=== PATIENT | female | born 1985 | race Hispanic/Latino ===

== ENCOUNTER 2020-04-01 19:49 | Emergency (ER) | payer SELFPAY ==
--- NOTE | 2020-04-01 21:07 | EDPHYS ---
Physician Documentation [facility] Name: Hilda Brewer Age: 34 yrs Sex: Female : 1985 Arrival Date: 04/01/2020 Time: 19:52 Bed 20 Private MD: ED Physician Everette Jo HPI: 04/01 21:02 This 34 yrs old Female presents to ER via Ambulatory with complaints of rn depression. 21:02 The patient presents to the emergency department with depression. Onset: The rn symptoms/episode began/occurred "years". Severity of symptoms: At their worst the symptoms were moderate in the emergency department the symptoms are unchanged. The patient has experienced similar episodes in the past. Reports depression for "years", worse over last 2 months, has a psychiatrist and taking anti-depressant, doesn't feel like working, came in to see if she needed to "be commited". Denies suicidal or homicidal ideation, is constantly arguing with and thinks is going to get divorce. No medical complaints otherwise.. 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 - Social history:: Smoking status: Patient denies any tobacco usage or history of. Patient uses alcohol, weekly. - Family history:: not pertinent. - Hospitalizations: : No recent hospitalization is reported. ROS: 21:02 Constitutional: Negative for fever, chills, and weight loss, Eyes: Negative for injury, rn pain, redness, and discharge, Neck: Negative for injury, pain, and swelling, Cardiovascular: Negative for chest pain, palpitations, and edema, Respiratory: Negative for shortness of breath, cough, wheezing, and pleuritic chest pain, Abdomen/GI: Negative for abdominal pain, nausea, vomiting, diarrhea, and constipation, MS/Extremity: Negative for injury and deformity, Skin: Negative for injury, rash, and discoloration, Neuro: Negative for headache, weakness, numbness, tingling, and seizure, Psych: Negative for depression, anxiety Exam: 21:02 Constitutional: This is a well developed, well nourished patient who is awake, alert, rn and in no acute distress. Head/Face: Normocephalic, atraumatic. Eyes: Pupils equal round and reactive to light, extra-ocular motions intact. Periorbital areas with no swelling, redness, or edema. Cardiovascular: Regular rate and rhythm . No pulse deficits. Respiratory: Speaking full sentences, un pressured. No increased work of breathing, no retractions or nasal flaring. Skin: Warm, dry MS/ Extremity: Pulses equal, no cyanosis. Neuro: Awake and alert, GCS 15, oriented to person, place, time, and situation. Cerebellar exam normal. Normal gait. Psych: Awake, alert, with orientation to person, place and time. Behavior, mood, and affect are within normal limits. Vital Signs: 19:59 BP 120 / 85; Pulse 89; Resp 15 S; Temp 97.9(TE); Pulse Ox 99% on R/A; Weight 81.65 kg ca1 (R); Height 5 ft. 1 in. (154.94 cm); 19:59 Body Mass Index 34.01 (81.65 kg, 154.94 cm) ca1 MDM: 20:48 Patient medically screened. rn 21:02 Differential diagnosis: depression. Data reviewed: vital signs, nurses notes, and as a rn result, I will discharge patient. Counseling: I had a detailed discussion with the patient and/or guardian regarding: the historical points, exam findings, and any diagnostic results supporting the discharge/admit diagnosis, the need for outpatient follow up, to return to the emergency department if symptoms worsen or persist or if there are any questions or concerns that arise at home. Special discussion: I discussed with the patient/guardian in detail that at this point there is no indication for admission to the hospital. It is understood, however, that if the symptoms persist or worsen the patient needs to return immediately for re-evaluation. Based on the history and exam findings, there is no indication for further emergent testing or inpatient evaluation. I discussed with the patient/guardian the need to see the psychiatrist for further evaluation of the symptoms. ED course: No need for emergent transfer to psychiatric facility, normal vitals, normal exam, denies suicidal/homicidal ideation, has a psychiatrist and plans to call in AM, urged to return immediately if symptoms worsen/feels suicidal or homicidal. . Administered Medications: No medications were administered Disposition: 04/01/20 21:06 Discharged to Home. Impression: Major depressive disorder, single episode. - Condition is Stable. - Discharge Instructions: Major Depressive Disorder. - Medication Reconciliation Form, Thank You Letter, Antibiotic Education, Prescription Opioid Use form. - Follow up: Private Physician; When: Tomorrow; Reason: Recheck today's complaints, Re-evaluation by your physician. - Problem is an ongoing problem. - Symptoms are unchanged. Signatures: Everette Jo MD MD rn Davies, Jonathon, RN RN jd3 Acob, ANDRY Santamaria RN ca1 Corrections: (The following items were deleted from the chart) 21:13 21:06 04/01/2020 21:06 Discharged to Home. Impression: Major depressive disorder, jd3 single episode. Condition is Stable. Forms are Medication Reconciliation Form, Thank You Letter, Antibiotic Education, Prescription Opioid Use. Follow up: Private Physician; When: Tomorrow; Reason: Recheck today's complaints, Re-evaluation by your physician. Problem is an ongoing problem. Symptoms are unchanged. rn
--- NOTE | 2020-04-01 21:07 | ER ---
Nurse's Notes [facility] Name: Hilda Brewer Age: 34 yrs Sex: Female : 1985 Arrival Date: 04/01/2020 Time: 19:52 Bed 20 Private MD: Diagnosis: Major depressive disorder, single episode Presentation: 04/01 19:59 Chief complaint: Patient states: "I am just angry and depressed. I am committing ca1 myself. It's been going on for a while. Been seeing a psychiatrist, and am on medications but I still worse and my medication and psychiatrist are not helping". Denies suicidal and homicidal thoughts. Coronavirus screen: Patient denies a cough. Patient denies shortness of breath or difficulty breathing. Patient denies measured and/or subjective temperature greater than 100.4F prior to today's visit. Patient denies travel on a cruise ship or to a country the [facility] currently lists as an affected area. Patient denies contact with known and/or suspected case of COVID-19. Proceed with normal triage. Ebola Screen: Patient negative for fever greater than or equal to 101.5 degrees Fahrenheit, and additional compatible Ebola Virus Disease symptoms Patient denies exposure to infectious person. Patient denies travel to an Ebola-affected area in the 21 days before illness onset. No symptoms or risks identified at this time. Initial Sepsis Screen: Does the patient meet any 2 criteria? No. Patient's initial sepsis screen is negative. Does the patient have a suspected source of infection? No. Patient's initial sepsis screen is negative. Risk Assessment: Do you want to hurt yourself or someone else? Patient reports no desire to harm self or others. Onset of symptoms was April 01, 2020. 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 - Social history:: Smoking status: Patient denies any tobacco usage or history of. Patient uses alcohol, weekly. - Family history:: not pertinent. - Hospitalizations: : No recent hospitalization is reported. Screenin:12 Abuse screen: Denies threats or abuse. Nutritional screening: Nutritional screening: No jd3 deficits noted. Tuberculosis screening: No symptoms or risk factors identified. Fall Risk Ambulatory Aid- None/Bed Rest/Nurse Assist (0 pts). Gait- Normal/Bed Rest/Wheelchair (0 pts) Mental Status- Oriented to own ability (0 pts). Total Vera Fall Scale indicates No Risk (0-24 pts). Assessment: 21:11 General: Appears in no apparent distress. uncomfortable, Behavior is calm, cooperative, jd3 appropriate for age, anxious. Pain: Denies pain. Neuro: Level of Consciousness is awake, alert, obeys commands, Oriented to person, place, time, situation. Cardiovascular: Denies chest pain, Capillary refill < 3 seconds Patient's skin is warm and dry. Respiratory: Airway is patent Respiratory effort is even, unlabored, Respiratory pattern is regular, symmetrical, Denies cough, shortness of breath. GI: No signs and/or symptoms were reported involving the gastrointestinal system. : No signs and/or symptoms were reported regarding the genitourinary system. EENT: No signs and/or symptoms were reported regarding the EENT system. Derm: Skin is intact, Skin is dry, Skin is normal, Skin temperature is warm. Musculoskeletal: Circulation, motion, and sensation intact. Range of motion: intact in all extremities. Vital Signs: 19:59 BP 120 / 85; Pulse 89; Resp 15 S; Temp 97.9(TE); Pulse Ox 99% on R/A; Weight 81.65 kg ca1 (R); Height 5 ft. 1 in. (154.94 cm); 19:59 Body Mass Index 34.01 (81.65 kg, 154.94 cm) ca1 ED Course: 19:52 Patient arrived in ED. bp1 20:03 Triage completed. ca1 20:04 Arm band placed on right wrist. ca1 20:48 Everette Jo MD is Attending Physician. rn 21:11 Amandeep Rangel RN is Primary Nurse. jd3 21:12 Patient has correct armband on for positive identification. Bed in low position. Call jd3 light in reach. Side rails up X 1. Pulse ox on. NIBP on. 21:13 No provider procedures requiring assistance completed. Patient did not have IV access jelijah during this emergency room visit. Administered Medications: No medications were administered Outcome: 21:06 Discharge ordered by . rn 21:13 Discharged to home ambulatory. jd3 21:13 Condition: stable 21:13 Discharge instructions given to patient, Instructed on discharge instructions, follow up and referral plans. Demonstrated understanding of instructions, follow-up care. 21:13 Patient left the ED. jd3 Signatures: Everette Jo MD MD rn Davies, Jonathon, RN RN Hina Knight RN RN ca1 Ale Gamez bp1
[2020-04-01 21:20] VITALS: BP 120/85; TEMP 97.9; O2SAT 99
== END 2020-04-01 21:13 | disposition home or self-care (01) ==
LOC: ER 19:49
DX: F32.9 Major depressive disorder, single episode, unspecified (principal)
CPT/HCPCS: 99283

== ENCOUNTER 2021-10-12 10:36 | Day surgery (SDC) | payer OTHER ==
[2021-10-06 14:40] LABS: Urine Appearance CLEAR (Clear); Urine Bilirubin NEGATIVE (Negative); Urine Blood 1+ (Negative); Urine Color YELLOW (Yellow); Urine Glucose NEGATIVE (Negative); Urine Protein NEGATIVE (Negative); Urine Urobilinogen 0.2 mg/dL (0.2-1.0)
[2021-10-06 14:41] LABS: Urine Microscopic Reflex ORDER UMIC
[2021-10-06 14:54] LABS: Potassium 3.6 mmol/L (3.5-5.1)
[2021-10-06 14:59] LABS: Absolute Lymphocytes (CBC) 1.4 K/uL (0.7-4.9); Hematocrit 44.3 % (36.0-45.0); Lymphocytes % 20.7 % (15.3-44.8); MPV 9.1 fL (7.6-11.3); RBC Red Blood Cell Count 5.07 M/uL (3.86-4.86)
[2021-10-06 15:02] LABS: Protime INR 1.02
[2021-10-06 15:22] LABS: Urine Mucus 2+ /HPF (NONE SEEN); Urine RBC <5 /HPF (NONE SEEN)
[2021-10-06 15:24] LABS: Urine Bacteria 20-50 /HPF (<20)
[2021-10-12] MEDS ORDERED: Ringers Lactate 1,000 ML IV ONE ×2 (10:52→18:39)
[2021-10-12] MEDS ORDERED: ACETAMINOPHEN 500 MG TAB ONE (11:38)
[2021-10-12] MEDS ORDERED: CELECOXIB 100 MG CAPSULE ONE (11:39)
[2021-10-12] MEDS ORDERED: CELECOXIB 100 MG CAPSULE PO ONE (11:40)
[2021-10-12] MEDS ORDERED: ACETAMINOPHEN 500 MG TAB PO ONE (11:40)
[2021-10-12] MEDS: CEFAZOLIN/SWI 2gm 2 GM/20 ML SYR ONE ×2 (13:35→16:15)
[2021-10-12] MEDS ORDERED: CEFAZOLIN SODIUM 1 GM/VIAL ONE (14:59)
[2021-10-12] MEDS ORDERED: NA CHLORIDE 0.9% 100 ML IV ONE (15:00)
[2021-10-12] MEDS: VASOPRESSIN 20 UNIT/ML VIAL ONE ×2 (15:58→16:42)
[2021-10-12] MEDS: LIDOCAINE 1% W/EPI 1:100,000 MDV 20 ML VIAL ONE ×2 (15:59→17:04)
[2021-10-12] MEDS ORDERED: MIDAZOLAM HCL 2 MG/2 ML INJ ONE (16:02)
[2021-10-12] MEDS ORDERED: propofoL 200 MG/20 ML VIAL IV ONE (16:02)
[2021-10-12] MEDS ORDERED: LIDOCAINE 1% MPF 5 ML VIAL ONE (16:02)
[2021-10-12] MEDS ORDERED: FENTANYL CITR 100 MCG/2 ML ONE (16:02)
[2021-10-12] MEDS ORDERED: dexAMETHasone 10 MG/ML VIAL ONE (16:22)
[2021-10-12] MEDS ORDERED: ONDANSETRON 4 MG/2 ML VIAL ONE ×2 (16:23→18:10)
[2021-10-12] MEDS ORDERED: KETOROLAC 30 MG/ML INJ ONE (16:23)
[2021-10-12] MEDS ORDERED: MEPERIDINE HCL 25 MG/ML SYR IM PRN (17:10)
[2021-10-12] MEDS ORDERED: PROMETHAZINE INJ 25 MG/ML AMP IV PRN (17:10)
[2021-10-12] MEDS ORDERED: LEVONORGESTREL IUD IY SCH (17:15)
--- NOTE | 2021-10-12 17:15 | P.BOP ---
Preoperative diagnosis: FERNANDO Postoperative diagnosis: SAME Primary procedure: MUS (TVT-O) cystoscopy Associate Professor Of Chemistry: Cheryl Talamantes Estimated blood loss: min Specimen: none Findings: rectocele Anesthesia: General Complications: None Drain(s): Urinary catheter (plan to remove in 2h postop and discharge w/o catheter if she passes the voiding trial) Implants: TVT-O Fluids & blood products: [id number] Transferred to: Recovery Room Condition: Good
[2021-10-12 18:32] VITALS: BP 113/77; O2SAT 100
[2021-10-12 20:10] VITALS: TEMP 97.9
--- NOTE | 2021-10-13 05:18 | OP ---
Date of Procedure: 10/12/2021 Surgeon: Mary Baker MD Top Dyeing Machine Loader: Cheryl Sarah. Preoperative Diagnosis: Stress urinary incontinence. Postoperative Diagnosis: Stress urinary incontinence Procedure Performed: Mid urethral sling (TVT-O), cystoscopy. Anesthesia: General with LMA. Ebl: 50. Urine Output: 100. Complications: No complications. Drains: Baugh catheter and vaginal packing. Implants: TVT-O. Condition: The patient's condition stable. Indications: The patient is a 36-year-old female with stress urinary incontinence. After evaluation , she was found to have a positive cough stress test and also found to have posterior wall defect (re ctocele), mostly minimally symptomatic from here, did not need to get this addressed at this time. T he patient was counseled on this. Hypermobile urethra. We discussed about all the benefits and risk s of management including garcia holes and they have not helped. Since they have not helped, she has be en trying to lose weight. Pessary and the sling were both reviewed, felt peripheral on director of physical therapy apy as well. The patient wanted to proceed with a mid urethral sling understanding the benefits and risks including bleeding, infection, injury to the urethra, bladder, groin pain, and need for urinary retention, catheterization, sling revision. After informed consent was verified, she was brought to the OR. 2 g of Ancef was given and SCDs were placed. The patient was placed in supine fashion on the operating table and general anesthesia was given. She was placed in a dorsal lithotomy position using Javi stirrups. Lower abdomen, vulva, va víctor, and perineum were prepped and draped in a sterile fashion. Baugh was placed to drain the bladd er and procedure was started. The Baugh was clamped and retracted superiorly after draining the blad gamal. Mid urethral area was picked up on either side with the help of Krystyna clamps. Then, injected w ith dilute vasopressin 10 cc in the midline and the lateral aspect. After she was in a 1. 5 cm midline incision was made in the mid urethral area. Dissection was carried raising good flaps u nderneath the vaginal epithelium going to the ipsilateral shoulder. Hugging the inferior pubic ramus , obturator space was entered and obturator membrane was perforated, the wing guide was placed after the tract was widened. A finger dissection was also performed to widen the track to keep the sling f lat. Then, the wing guide was placed through the perforated obturator membrane and passed the needle along this, hugging the inferior pubic ramus, exiting at a point approximately 2 cm lateral to the g roin fold at the level of the external urethral meatus was slightly higher when the patient was in li thotomy, then once the plastic dilator was held with a Krystyna and the spike was removed in the wing gu montserrat, similar pass was taken on the opposite side as well without any problems. No evidence of any va ginal perforation of the sling. Then went ahead and cut the plastic dilators off the mesh and the sh eath. Mid urethral area was tensioned using an Allis clamp to hold the fold of the sling just enough to keep it loose enough. Once this was tensioned appropriately, then the plastic sheaths were pulle d and the mesh was trimmed flush with the skin. The skin pulled to avoid a pucker. Then local Lidoc alyssa was given there. Wound was irrigated along with the mesh with antibiotic solution, closed with the help of 3-0 Vicryl in a continuous running horizontal mattress fashion. There was good hemostasi s. The mesh exit points were closed with the help of Dermabond after cutting it flush with the skin. Then, Baugh removed. Cystoscopy performed. Both ureteric orifices were well visualized. No evide nce of any abnormalities in the bladder, epithelium. The entire bladder was visualized, especially p aying attention to the lateral aspect where the perforation could be seen and there was none. Bladde r was drained. Baugh was replaced. A small vaginal pack was placed. She will have a 2-hour postop voiding trial with removal of vaginal pack, and then she will be discharged home if she passes the tr ial without a catheter and with a catheter if she fails the trial. She can restart all her medications. The patient tolerated the procedure well. She has a 1-week followup. DAVID/JERMAIN Voice ID: [id number] Report ID: [id number]
[2021-10-13] MEDS ORDERED: LAMOTRIGINE 50 MG PO SCH (09:00)
== END 2021-10-12 20:13 | disposition home or self-care (01) ==
LOC: OR 10:36
PROVIDERS: ATTEND Obstetrics & Gynecology
PROC: 0TSD0ZZ Reposition Urethra, Open Approach (ICD-10-PCS; principal; 2021-10-12 12:00)
DX: N39.3 Stress incontinence (female) (male) (principal); N81.6 Rectocele; N94.12 Deep dyspareunia; Z20.822 Contact with and (suspected) exposure to COVID-19
CPT/HCPCS: 36415; 80048; 81003; 81015; 84703; 85025; 85610; 85730; 86850; 86900; 86901; 87086; 87088; J0690; J1100; J2250; J2405; J2704; J3010; J7120; U0003

== ENCOUNTER 2022-03-21 10:42 | Day surgery (SDC) | payer OTHER ==
[2022-03-17 11:10] LABS: SARS-CoV-2 Antigen Rapid Res Negative (Negative)
[2022-03-17 11:17] LABS: Albumin 3.6 g/dL (3.4-5.0); Bilirubin Total 0.4 mg/dL (0.2-1.0); Potassium 4.3 mmol/L (3.5-5.1); Protein, Total 7.4 g/dL (6.4-8.2)
[2022-03-17 11:25] LABS: Absolute Lymphocytes (CBC) 1.6 K/uL (0.7-4.9); Hematocrit 43.3 % (36.0-45.0); Lymphocytes % 26.9 % (15.3-44.8); MCV 88.3 fL (80-100); MPV 8.9 fL (7.6-11.3); RBC Red Blood Cell Count 4.91 M/uL (3.86-4.86)
--- NOTE | 2022-03-17 13:04 | EKG ---
Test Date: 2022-03-17 Test Time: 10:40:49 Medical Assembly: HERB MEASUREMENT RESULTS: Intervals: Rate: 82 SD: 148 QRSD: 92 QT: 354 QTc: 413 Argenta: P: 52 SD: 148 QRS: 59 T: 64 INTERPRETIVE STATEMENTS: Normal sinus rhythm Normal ECG No previous ECG available for comparison Electronically Signed On 03-17-22 13:03:35 CDT by Sulaiman Cheek
[~2022-03-21 10:42] MED LIST: CEFOXITIN 2 GM in NA CHLORIDE 0.9% 100 ML IV ONE
[2022-03-21] MEDS ORDERED: Ringers Lactate 1,000 ML IV ONE ×2 (11:03→14:53)
[2022-03-21 11:24] VITALS: O2SAT 100
[2022-03-21] MEDS ORDERED: ACETAMINOPHEN 500 MG TAB ONE (11:45)
[2022-03-21] MEDS ORDERED: CELECOXIB 100 MG CAPSULE ONE (11:45)
[2022-03-21] MEDS ORDERED: BUPIVACAINE 0.25% PF 30 ML VIAL ONE (12:46)
[2022-03-21] MEDS ORDERED: FENTANYL CITR 100 MCG/2 ML ONE ×2 (13:32→14:15)
[2022-03-21] MEDS ORDERED: propofoL 200 MG/20 ML VIAL IV ONE (13:32)
[2022-03-21] MEDS ORDERED: MIDAZOLAM HCL 2 MG/2 ML INJ ONE (13:33)
[2022-03-21] MEDS ORDERED: ROCURONIUM 50 MG/5 ML VIAL IV ONE (13:33)
[2022-03-21] MEDS ORDERED: LIDOCAINE 1% MPF 5 ML VIAL ONE (13:33)
[2022-03-21] MEDS ORDERED: BUPIVACA 0.5%/EPI 0.0005%/PF 30 ML VIAL ONE (13:55)
[2022-03-21] MEDS ORDERED: KETOROLAC 30 MG/ML INJ ONE (14:06)
[2022-03-21] MEDS ORDERED: dexAMETHasone 10 MG/ML VIAL ONE (14:06)
[2022-03-21] MEDS ORDERED: ONDANSETRON 4 MG/2 ML VIAL ONE ×3 (14:07→16:50)
--- NOTE | 2022-03-21 15:02 | P.OP ---
Preoperative diagnosis: Chronic Cholecystitis with Cholelithiasis Postoperative diagnosis: Chronic Cholecystitis with Cholelithiasis Primary procedure: Laparoscopic cholecystectomy with ICG Cholangiography Anesthesia: GETA + Local Estimated blood loss: <10cc Specimen: gallbladder Findings: intrahepatic, heavily scarred, contracted Complications: None Transferred to: Recovery Room Condition: Good
[2022-03-21] MEDS ORDERED: GLYCOPYRROLATE 0.2 MG/ML SYR ONE (15:03)
[2022-03-21] MEDS ORDERED: NEOSTIGMINE 1 MG/ML -10 ML VIAL ONE (15:04)
[2022-03-21] MEDS ORDERED: PROMETHAZINE INJ 25 MG/ML AMP ONE (15:46)
[2022-03-21 16:07] VITALS: BP 118/72; TEMP 97
[2022-03-21 16:12] LABS: Urine Specific Gravity/Preg >1.030 (1.005-1.030)
[2022-03-21] MEDS ORDERED: METOCLOPRAMIDE 10 MG/2mL INJ ONE (16:51)
[2022-03-21] MEDS ORDERED: HYDROCODONE/APAP 7.5/325 MG TAB ONE (17:19)
--- NOTE | 2022-03-22 03:07 | OP ---
Date of Procedure: 03/21/2022 Surgeon: Bridgett Vidales MD, Preoperative Diagnosis: Chronic cholecystitis with cholelithiasis. Postoperative Diagnosis: Chronic cholecystitis with cholelithiasis. Procedures Performed: Laparoscopic cholecystectomy with ICG indocyanine green cholangiography. Anesthesia: General endotracheal plus local 0.5% Marcaine with epinephrine. Estimated Blood Loss: Less than 10 cc. Specimen: Gallbladder. Findings: 1.Intrahepatic gallbladder. 2.Heavily scarred gallbladder with omentum and multiple perihepatic scars/adhesions. 3.Contracted gallbladder at the fundus. 4.Aberrant vascular branches from hepatic fossa to gallbladder. Procedure In Detail: After informed consent was obtained, the patient was brought to the operating r oom and prepped and draped in the usual sterile fashion after adequate anesthesia was achieved. The supraumbilical area was anesthetized with 0.5% Marcaine and sharply incised. A 5 mm 0-degree optical trocar was introduced in the abdomen without complication. Insufflation was obtained to 15 mmHg at this time. No injury to vital structures upon entry into the abdomen. Additional trocar was placed in the epigastrium. This similarly was anesthetized and sharply incised. A 5 mm trocar was placed u nder direct visualization without complication. The umbilical trocar was then upsized to a 12 mm und er direct visualization without evidence of complication. Additional trocar was placed in the right upper quadrant. This similarly was anesthetized and sharply incised. A 5 mm trocar was placed under direct visualization without complication. The patient was positioned head up right-side up positio n. Ratcheted grasper was used to grasp the patient's gallbladder, was found to be heavily scarred in , contracted at the fundus of the gallbladder. Combination of electrocautery and blunt dissection wa s used to remove the omentum from the anterior surface of the gallbladder. In addition, significant scarring and contracture of the gallbladder was appreciated. I grasped the gallbladder, pushed towar ds the patient's right shoulder and continued to dissect down to the Peyton's pouch of the gallblad gamal using predominantly electrocautery as well as some blunt dissection with the Janel retractors. I used indocyanine green cholangiography at this point to confirm the identity of 2 structures, whic h were identified as the cystic duct and cystic artery and the common duct confluence was appreciated at this point after I skeletonized the cystic duct and cystic artery. These were doubly clipped wit h titanium clips on the proximal side and singly on the distal side after the critical view of safety was obtained. These structures were then ligated using Endo Alberto at this point without evidence o f complication. I then proceeded to remove the gallbladder from the hepatic fossa. It was found to be predominantly intrahepatic and small hair vascular branches were appreciated approximately nursing home up the gallbladder fossa with arterial spurting at the gallbladder bed. This was controlled with cl ips at this point when electrocautery was unsuccessful. Hemostasis was achieved with clips at this p oint with a single clip. At this point, the area was inspected and hemostasis was achieved at this p oint, however, we proceeded to remove the gallbladder fossa without further evidence of complication. The gallbladder was then placed in hepatic fossa and sent off for pathologic examination after pardeep quevedo removed the umbilical trocar. Re-insufflation was obtained at this point. The area was copiously irrigated multiple times with approximately half a liter of saline. The hepatic fossa was inspected and all clips were found to be in good anatomic position without any evidence of spillage. The fluid was suctioned out and no additional hemostat was required. I fulgurated portions of the hepatic bed at this point away from the previous clips to ensure hemostasis. At this point, the area was irriga bridgett once again and inspected under desufflation pressure. There was no evidence of bleeding at this point. The area was copiously irrigated one last time and suctioned out. At this point, clips were found to be in good anatomic position. I then placed the patient back in a neutral position. Remain ing fluid was suctioned out. The umbilical trocar was then removed. The umbilical trocar site was c losed using a Buck-Kojo suture passer with 0 Vicryl in fashion. Good approximation tissues. T he remaining trocars were removed under direct visualization without evidence of complication and the abdomen was completely desufflated. All trocars were placed on the back table. All skin incisions were copiously irrigated and closed with a 4-0 Monocryl fashion and Dermabond placed over top. The p atient tolerated the procedure well without evidence of any complication and transferred back in good condition. All counts were correct at the end of the case. TK/MODL Voice ID: [id number] Report ID: [id number]
== END 2022-03-21 17:23 | disposition home or self-care (01) ==
LOC: OR 10:42
PROVIDERS: ATTEND Surgery
PROC: BF13YZZ Fluoroscopy of Gallbladder and Bile Ducts using Other Contrast (ICD-10-PCS; 2022-03-21)
PROC: 0FT44ZZ Resection of Gallbladder, Percutaneous Endoscopic Approach (ICD-10-PCS; principal; 2022-03-21 13:45)
DX: K80.10 Calculus of gallbladder with chronic cholecystitis without obstruction (principal); R10.11 Right upper quadrant pain; F32.A Depression, unspecified; R51.9 Headache, unspecified; I67.1 Cerebral aneurysm, nonruptured; Z20.822 Contact with and (suspected) exposure to COVID-19
CPT/HCPCS: 93005; 85025; 36415; 81025; 88304; 80053; 87811; 47563; J2704; J2710; J2765; J2550; J2250; J3010 ×2; J1100; J7120 ×2; J0694; J2405 ×3

== ENCOUNTER 2025-06-16 16:57 | Emergency (ER) | payer OTHER ==
--- OUTSIDE RECORDS SUMMARY | 2025-06-16 17:01 | XMS REPORT | Continuity of Care Document ---
Author Name Unknown Address [address] [place] [address] [facility] Address [address] [place] [address] Care Team Providers Care Post Anesthesia Nurse Name Role Phone NO PHYSICIAN, . Primary Care Physician Unavailab LAURA Fry Attending Clinician Unavailab le Doctor Unassigned, Sargeant Attending Clinician U Dante Weldno Attending Clinician + DANTE GRIDER Attending Clinician Unavail able Payers Payer Name Policy Type Policy Number Effective Date Expirati on Date Source Problems Condition Name Condition Details Condition Category Status Onset Date Resolution Date Last Treatment Date Treating Clinician Comments Source IUD (intrauter ine device) in place IUD (intrauter ine device) in place Disease Active 05-01 00:00: 00 [facility] IUD (intrauter ine device) in place IUD (intrauter ine device) in place Disease Active 05-01 00:00: 00 [facility] Contracept fran management Contracept fran management Disease Active 03-05 00:00: 00 [facility] Contracept fran management Contracept fran management Disease Active 03-05 00:00: 00 [facility] Obesity (BMI 30-39.9) Obesity (BMI 30-39.9) Disease Active 03-05 00:00: 00 [facility] Encounter for insertion of intrauteri ne contracept fran device Encounter for insertion of intrauteri ne contracept fran device Disease Active 05-13 00:00: 00 Overview: Exp. 8 [facility] Brain aneurysm-- 03/2012 Brain aneurysm-- 03/2012 Disease Active 02-19 00:00: 00 [facility] Depression --denies suicidal thoughts or plans Depression --denies suicidal thoughts or plans Disease Active 02-19 00:00: 00 [facility] Tobacco use disorder Tobacco use disorder Disease Active 02-19 00:00: 00 [facility] Allergies, Adverse Reactions, Alerts Allergy Name Allergy Type Status Severity Reaction(s) Onset Date Inactive Date Treating Clinician Comments Source NO KNOWN ALLERGIE S Drug Class Active [facility] Social History Social Habit Start Date Stop Date Quantity Comments Source [facility] Alcohol intake 2019-05-01 00:00:00 2019-05-01 00:00:00 [facility] History of tobacco use 2013-02-18 00:00:00 Cigarette Smoker [facility] Alcohol Comment 2012-11-26 00:00:00 2012-11-26 00:00:00 socially [facility] Smoking Status Start Date Stop Date Source Former smoker 2019-05-01 00:00:00 2019-05-01 00:00:00 [facility] Medications Ordered Medication Name Filled Medication Name Start Date Stop Date Current Medication? Ordering Clinician Indication Dosage Frequency Signature (SIG) Comments Components Source Nitrofurant oin (Macrobid *) 100 Mg CAP Nitrofurant oin (Macrobid *) 100 Mg CAP 10-04 21:05: 00 Yes 100 [facility] warfarin (COUMADIN) 4 mg tablet 03-05 15:05: 11 Yes 4mg Take 4 mg by mouth. [facility] citalopram (CELEXA) 20 mg tablet 03-05 15:05: 11 Yes 20mg Take 20 mg by mouth daily. [facility] levETIRAcet am (KEPPRA) 1,000 mg tablet 03-05 15:05: 11 Yes 1000mg Take 1,000 mg by mouth daily. [facility] Vital Signs Vital Name Observation Time Observation Value Comments Kate ureña Systolic blood pressure 2019-05-01 14:59:00 125 mm[Hg] [facility] Diastolic blood pressure 2019-05-01 14:59:00 85 mm[Hg] [facility] Heart rate 2019-05-01 14:59:00 75 /min [facility] Body temperature 2019-05-01 14:59:00 36.22 [facility] Respiratory rate 2019-05-01 14:59:00 16 /min [facility] Body height 2019-05-01 14:59:00 154.9 cm [facility] Body weight 2019-05-01 14:59:00 76.374 kg [facility] BMI 2019-05-01 14:59:00 31.81 kg/m2 [facility] Procedures Procedure Date / Time Performed Performing Clinicia n Source EXTERNAL PROVIDER RECORDS 2020-04-02 05:01:00 Doctor Unassigned, [facility] Encounters Start Date/Time End Date/Time Encounter Type Admission Type Attending Clinicians Care Facility Care Department Encounter ID Source 2024-10-04 19:21:00 2024-10-04 21:33:00 Departed Emergency Room [facility] [id number] [facility] 2024-10-04 19:21:00 2024-10-04 21:33:00 Emergency ER [facility] [id number] [facility] 2020-04-02 00:00:00 2020-04-02 00:00:00 Orders Only Doctor Unassigned, Sargeant [facility] [id number] [facility] 2019-05-01 09:37:11 2019-05-01 10:41:36 Office Visit Leo Grideralejandro Tapia [facility] [id number] [facility] 2019-05-01 09:30:00 2019-05-01 10:41:36 [facility] [id number] [facility] Results Test Description Test Time Test Comments Results Result Co mments Source [facility] CtrUrine leukocyte esterase [id number] 20:58:00* Test Item Value Reference Range Interpretation Comme nts Urine Leukocyte Esterase (te st code = 160543-7) 2+ [facility] CtrRBC count ur [id number] 20:54:00* Test Item Value Reference Range Interpretation Comme nts Urine RBC (test code = 798-9) 0-2 [facility] CtrUrine examination for white blood cells (WBC) 2024-10-04 20:54:00* Test Item Value Reference Range Interpretation Comme nts Urine WBC (test code = 631084344) 51-100 [facility] CtrAutomated epithelial cells count in urine sediment (number/area)2024-10-04 20:54:00* Test Item Value Reference Range Interpretation Comme nts Urine Epithelial Cells (test code = 81227-8) 0-2 [facility] CtrBacteria detection in urine sediment by light mswciqdotf0711-66-77 20:54:00* Test Item Value Reference Range Interpretation Comme nts Urine Bacteria (test code = 74497-1) Few [facility] CtrUrine casts detection by automated method 2024-10-04 20:54:00* Test Item Value Reference Range Interpretation Comme nts Urine Casts (test code = 04203-0) 0-2 [facility] CtrColor of Urine by [id number] 20:49:00* Test Item Value Reference Range Interpretation Comme nts Urine Color (test code = 65568-8) Yellow [facility] CtrAppearance of [id number] 20:49:00* Test Item Value Reference Range Interpretation Comme nts Urine Appearance (test code = 5767-9) Clear [facility] CtrUrine glucose bcdofgkvg6694-90-34 20:49:00* Test Item Value Reference Range Interpretation Comme nts Urine Glucose (UA) (test cod e = 2349-9) Negative [facility] CtrBilirubin [id number] 20:49:00* Test Item Value Reference Range Interpretation Comme [facility] Urine Bilirubin (test code = 002425989) Negative [facility] CtrKetones dc0557-42-32 20:49:00* Test Item Value Reference Range Interpretation Comme [facility] Urine Ketones (test code = 26243520) 1+(SMALL) [facility] CtrSpecific gravity of Urine by Automated test strip 2024-10-04 20:49:00* Test Item Value Reference Range Interpretation Comme nts Urine Specific [place] (test code = 63113-1) 1.011 [facility] wnqimbmlt9331-58-59 20:49:00* Test Item Value Reference Range Interpretation Comme [facility] Urine Blood (test code = 457190-8) 1+ (SMALL) [facility] CtrpH [id number] 20:49:00* Test Item Value Reference Range Interpretation Comme [facility] Urine pH (test code = 2756-5) 6.000 [facility] CtrProtein gx7582-05-01 20:49:00* Test Item Value Reference Range Interpretation Comme nts Urine Protein (test code = 38381933) Negative [facility] CtrUrobilinogen, urine, tl9830-79-08 20:49:00* Test Item Value Reference Range Interpretation Comme nts Urine Urobilinogen (test cod e = 837003965) 0.2 [facility] nitrate odgqkqeyi1447-73-06 20:49:00* Test Item Value Reference Range Interpretation Comme [facility] Urine Nitrate (test code = 25415-7) Negative [facility] CtrSerum or plasma cardiac troponin I panel by high sensitivity onowec8804-31-04 20:24:00* Test Item Value Reference Range Interpretation Comme nts Troponin T High Sensitivity (test code = 37306-9) 6.6 [facility] potassium kaeflwxqsjr6567-18-64 20:22:00* Test Item Value Reference Range Interpretation Comme nts Potassium Level (test code = 2821-7) 3.5 [facility] GdhEO56731-59-95 20:22:00* Test Item Value Reference Range Interpretation Comme nts Carbon Dioxide Level (test c ode = 01172951) 19 [facility] CtrAnion gap iicjzpsuipb9924-28-17 20:22:00* Test Item Value Reference Range Interpretation Comme nts Anion Gap (test code = 39490278) 19.5 [facility] CtrCalcium mudoe4135-43-28 20:22:00* Test Item Value Reference Range Interpretation Comme nts Calcium Level (test code = 83733621) 8.7 [facility] CtrGlobulin vlk4684-76-33 20:22:00* Test Item Value Reference Range Interpretation Comme nts Globulin (test code = 792237138) 2.8 [facility] CtrALT (SGPT) ser/xeru5060-82-46 20:22:00* Test Item Value Reference Range Interpretation Comme nts Alanine Aminotransferase (AL T/SGPT) (test code = 1742-6) 12 [facility] CtrALP ser/dzzk1343-91-82 20:22:00* Test Item Value Reference Range Interpretation Comme nts Total Alkaline Phosphatase ( test code = 6768-6) 76 [facility] CtrBilirubin wxbux2362-73-24 20:22:00* Test Item Value Reference Range Interpretation Comme nts Total Bilirubin (test code = JCH0735) 0.3 [facility] CtrSerum or plasma urea nitrogen measurement (mass/volume)2024-10-04 20:22:00* Test Item Value Reference Range Interpretation Comme nts Blood Urea Nitrogen (test co de = 3094-0) 14 [facility] MkuSFO9327-08-86 20:22:00* Test Item Value Reference Range Interpretation Comme nts Aspartate Amino Transf (AST/ SGOT) (test code = GDJ3184) 19 [facility] CtrCreatinine dkefp4221-83-88 20:22:00* Test Item Value Reference Range Interpretation Comme [facility] Creatinine (test code = 142615745) 0.78 [facility] CtrEstimated glomerular filtration rate (GFR) hdflbardcuxvf0465-33-09 20:22:00* Test Item Value Reference Range Interpretation Comme [facility] Glomerular Filtration Rate C alc (test code = 659844036) > 60.00 [facility] CtrBUN/creatinine wyejr5885-01-67 20:22:00* Test Item Value Reference Range Interpretation Comme [facility] BUN/Creatinine Ratio (test c ode = 90769325) 17.9 [facility] CtrRBC cwafn5158-32-89 20:17:00* Test Item Value Reference Range Interpretation Comme [facility] Red Blood Count (test code = 78222963) 4.24 [facility] XfzErhdeuskqj2648-76-56 20:17:00* Test Item Value Reference Range Interpretation Comme [facility] Hematocrit (test code = 01627137) 36.7 [facility] CtrMCV (mean corpuscular volume) determination 2024-10-04 20:17:00* Test Item Value Reference Range Interpretation Comme [facility] Mean Corpuscular Volume (jasmyn t code = 46901-5) 86.6 [facility] CtrMean corpuscular hemoglobin (MCH) determination 2024-10-04 20:17:00* Test Item Value Reference Range Interpretation Comme [facility] Mean Corpuscular Hemoglobin (test code = 34246284) 29.0 [facility] CtrMean corpuscular hemoglobin concentration (MCHC) ftmrbltglstbo9872-27-54 20:17:00* Test Item Value Reference Range Interpretation Comme [facility] Mean Corpuscular Hemoglobin Concent (test code = 88536981) 33.5 [facility] CtrRBC distribution width coefficient of variation 2024-10-04 20:17:00* Test Item Value Reference Range Interpretation Comme [facility] Red Cell Distribution Width (test code = 81921850) 13.0 [facility] CtrPlatelet fucjv2002-13-50 20:17:00* Test Item Value Reference Range Interpretation Comme nts Platelet Count (test code = 52808560) 217 [facility] CtrMean platelet wwprpi2188-38-02 20:17:00* Test Item Value Reference Range Interpretation Comme nts Mean Platelet Volume (test c ode = 53786439) 10.2 [facility] CtrNeutrophils seg % rbo7627-03-64 20:17:00* Test Item Value Reference Range Interpretation Comme nts Neutrophils (%) (Auto) (test code = 83475-8) 87.0 [facility] CtrAbsolute immature granulocyte mgutx5484-45-52 20:17:00* Test Item Value Reference Range Interpretation Comme nts Absolute Immature Granulocyt e (auto (test code = 69161-6) 0.05 [facility] CtrBlood band neutrophils count (number/volume) 2024-10-04 20:17:00* Test Item Value Reference Range Interpretation Comme nts Neutrophils # (Auto) (test c ode = 94415-2) 7.46 [facility] CtrAbsolute lymphocyte bblap4300-30-30 20:17:00* Test Item Value Reference Range Interpretation Comme nts Lymphocytes # (Auto) (test c ode = 75444-3) 0.69 [facility] CtrAbsolute basophil pfekd7357-41-32 20:17:00* Test Item Value Reference Range Interpretation Comme nts Basophils # (Auto) (test cod e = 23689994) 0.02 [facility] CtrAbsolute NRBC emkra6468-04-22 20:17:00* Test Item Value Reference Range Interpretation Comme nts Nucleated Red Blood Cells # (test code = 770590141) 0 [facility] CtrAbsolute eosinophil angwg6981-49-04 20:17:00* Test Item Value Reference Range Interpretation Comme nts Eosinophils # (Auto) (test c ode = STF4052) 0.19 [facility] Notes <thead> Date/Time Note Provider Source [facility] Cno1484-76-24 21:40:13 [facility] Fyd4218-12-76 21:40:13 THANK YOU FOR CHOOSING US FOR YOUR MEDICAL CARE AND IT WAS A PLEASURE TO TAKE CARE OF YOU: VALENTINO CERVANTES, MSN, PRODUCT DEVELOPMENT TECHNICIAN, PHYSICIAN ASSISTANT CERTIFIED-BC DIAGNOSIS: UTI PRESCRIPTION: MACROBID PER PRESCRIPTION DETAILS SENT [facility] STEVIE GUILLEN: STAR GIVE IN ER FOLLOW UP: PRIMARY CARE IN 2 DAYS RETURN TO ER FOR WORSENING OF SYMPTOMS INSTRUCTIONS: PLENTY OF FLUIDS TYLENOL AND IBUPROFEN NEEDED GOOD INFECTION CONTROL - SUCH HANDWASHING Future Tests Future scheduled test information is unavailable Pending Tests Pending diagnostic test information is unavailable Future Visits Future appointment information is unavailable Referrals to Other Providers <thead> Reason for Referral Referral Start Date Provider Provider Contact Information Provider Address NO PHYSICIAN Future Procedures <thead> Procedure Name Ordered Date Scheduled Date Insert Peripheral IV Access October 04, 2024 7 :39pm October 04, 2024 EKG,INITIAL October 04, 2024 7:39pm Januar y 2024 Electrocardiogram, Complete October 04, 2024 7 :39pm October 04, 2024 7:38pm Future Medications Future medication information is unavailable Patient Instructions <tbody> Urinary Tract Infection, Wicho lt, [id number]-Mjho [facility]
[2025-06-16 18:41] LABS: Absolute Lymphocytes (CBC) 1.5 K/uL (0.7-4.9); Hematocrit 38.7 % (36.0-45.0); Hemoglobin 12.7 g/dL (12.0-15.0); MCH 29.0 pg (27.0-35.0); MCHC 32.8 g/dL (32.0-36.0); MCV 88.4 fL (80-100); MPV 8.4 fL (7.6-11.3); Nucleated RBC Absolute Count 0.0 (0-0); Nucleated Red Blood Cells % 0.0 % (0-0); RBC Red Blood Cell Count 4.38 M/uL (3.86-4.86); White Blood Count 6.10 thou/uL (4.3-10.9)
[2025-06-16] MEDS ORDERED: KETOROLAC 30 MG/ML INJ ONE (18:45)
[2025-06-16] MEDS ORDERED: METOCLOPRAMIDE 10 MG/2mL INJ ONE (18:45)
[2025-06-16] MEDS ORDERED: DIPHENHYDRAMINE 50 MG/ML VIAL ONE (18:46)
[2025-06-16] MEDS ORDERED: NA CHLORIDE 0.9% 1,000 ML ONE (18:46)
[2025-06-16 18:54] LABS: Anion Gap 8.0 mEq/L (5.0-15.0); BUN Blood Urea Nitrogen 14.0 mg/dL (7-18); Glucose Level 82.0 mg/dL (74-106); Magnesium 1.9 mg/dL (1.6-2.4); Potassium 4.0 mEq/L (3.5-5.1)
--- NOTE | 2025-06-16 20:31 | RAD REPORT ---
EXAM: CT brain without contrast HISTORY: HEADACHE COMPARISON: 06/11/2015 TECHNIQUE: Multiple contiguous axial images were obtained and a CT of the brain without contrast. Sag ittal and coronal reformats were performed. One or more of the following dose reduction techniques were used: Automated exposure control, adjust ment of the mA and/or kV according to patient size, and/or iterative reconstruction. FINDINGS: No evidence of hydrocephalus, intracranial hemorrhage, or extra-axial fluid collection. The brain is normal in morphology. No evidence of midline shift or areas of brain edema. The calvarium is intact. The visualized paranasal sinuses and mastoid air cells are essentially clear . IMPRESSION: No evidence of acute intracranial abnormality.
--- NOTE | 2025-06-16 20:42 | RAD REPORT ---
EXAMINATION: CTA HEAD CLINICAL INDICATION: h/o aneursym;Headache TECHNIQUE: Axial CT images were obtained through the head after intravenous contrast utilizing angiog raphic protocol with 3D post-processing (maximum intensity projection images, volume rendered images and/or shaded surface rendered images). One or more of the following dose reduction technique s were used: Automated exposure control, adjustment of the mA and/or kV according to patient size, and/or iterative reconstruction. Unless otherwise specified, incidental findings do not require dedic ated imaging follow-up. COMPARISON: No prior exam. FINDINGS: ICA: The petrous, cavernous, and supraclinoid segments of the bilateral internal carotid arteries are normal. The ophthalmic artery origins are visualized and normal. The posterior communicating arteries are patent. MIRIAM: Anterior cerebral arteries are normal bilaterally. The anterior communicating artery is patent. MCA: Middle cerebral arteries are normal bilaterally. CHIEF SECURITY AND SAFETY OFFICER: Posterior cerebral arteries are normal bilaterally. Vertebrobasilar: The vertebral arteries are patent. The basilar artery is normal in appearance. 3D images confirm these findings. IMPRESSION: No significant flow abnormality is identified.
--- NOTE | 2025-06-16 20:47 | RAD REPORT ---
EXAMINATION: CTA NECK CLINICAL INDICATION: headache, h/o aneursym TECHNIQUE: Axial CT images were obtained from the aortic arch to the skull base after intravenous con trast utilizing angiographic protocol with 3D post-processing (maximum intensity projection images, volume rendered images and/or shaded surface rendered images). One or more of the following dose redu ction techniques were used: Automated exposure control, adjustment of the mA and/or kV according to patient size, and/or iterative reconstruction. Unless otherwise specified, incidental findings do not require dedicated imaging follow-up. COMPARISON: No prior exam. FINDINGS: AORTA: The imaged aortic arch is normal. CCA: The common carotid arteries are patent and normal in caliber. ICA/ECA: Bilateral internal and external carotid arteries are patent. There is no significant interna l carotid artery stenosis. VERTEBRAL: The cervical vertebral arteries are patent. Mildly dominant left vertebral. SOFT TISSUE: No significant neck soft tissue abnormalities. The visualized lung apices are clear. 3D images confirm these findings. IMPRESSION: No significant flow abnormality of the neck vessels is identified. NASCET criteria used. Mild 0-49% stenosis Moderate 50-69% stenosis Severe 70-99% stenosis
--- NOTE | 2025-06-16 20:54 | EDPHYS ---
Physician Documentation [facility] Name: Hilda Brewer Age: 40 yrs Sex: Female : 1985 Arrival Date: 06/16/2025 Time: 16:57 Bed 25 Private MD: ED Physician Everette Jo HPI: 06/16 17:50 This 40 yrs old Female presents to ER via Ambulatory with complaints of sb4 Headache. 18:03 Patient reports an intermittent headache for about a month now. States that she donated sb4 blood today and the headache became much worse afterwards. States she took Excedrin without significant relief in symptoms. Does report a history of intermittent headaches, but nothing severe. States that she did have an aneurysm over 10 years ago and had coils put in but states that it has since resolved and has not had any issues since. Denies any head trauma recently, is not on any blood thinners. 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 - Infectious Disease History:: Denies. - Social history:: Smoking status: Patient denies any tobacco usage or history of. ROS: 18:03 Constitutional: Negative for fever, chills, and weight loss, sb4 18:03 Neuro: Positive for headache, 18:03 All other systems are negative, Exam: 18:05 Head/Face: Normocephalic, atraumatic. Eyes: Extra-ocular motions intact. Periorbital sb4 areas with no swelling, redness, or edema. ENT: Mucous membranes moist. Cardiovascular: Regular rate and rhythm with a normal S1 and S2. Respiratory: No increased work of breathing, no retractions or nasal flaring. Abdomen/GI: Soft, non-tender, no distension. Skin: Warm, dry with normal turgor. Normal color with no rashes, no lesions, and no evidence of cellulitis. MS/ Extremity: Pulses equal, no cyanosis. Neurovascular intact. Full, normal range of motion. 18:05 Constitutional: The patient appears alert, awake, in obvious pain, uncomfortable, Vital Signs: 17:07 BP 116 / 75; Pulse 100; Resp 18; Temp 98.2; Pulse Ox 98% ; Weight 81.65 kg; Height 5 me1 ft. 1 in. ; Pain 8/10; 19:00 BP 107 / 78; Pulse 84; Resp 16; Pulse Ox 100% on R/A; jb4 20:30 BP 91 / 63; Pulse 79; Resp 16; Pulse Ox 98% on R/A; jb4 17:07 Body Mass Index 34.01 (81.65 kg, 154.94 cm) me1 17:07 Pain Scale: Adult me1 Aaron Coma Score: 21:15 Eye Response: spontaneous(4). Motor Response: obeys commands(6). Verbal Response: sb4 oriented(5). Total: 15. MDM: 17:06 Medical Screening Exam initiated sb4 18:05 Differential diagnosis: cluster headache, cerebral vascular accident, hypertensive sb4 headache, intracerebral hemorrhage, migraine, neoplasm, temporal arteritis. 21:15 Data reviewed: vital signs, nurses notes, lab test result(s), radiologic studies, and sb4 as a result, I will discharge patient. Counseling: I had a detailed discussion with the patient and/or guardian regarding the historical points, exam findings, and any diagnostic results supporting the discharge/admit diagnosis, lab results, radiology results, the need for outpatient follow up, a neurologist, to return to the emergency department if symptoms worsen or persist or if there are any questions or concerns that arise at home. 06/16 17:13 Order name: CBC with Diff; Complete Time: 18:47 sb4 06/16 17:13 Order name: BMP; Complete Time: 18:54 sb4 06/16 17:13 Order name: Magnesium; Complete Time: 18:54 sb4 06/16 17:13 Order name: Test, Serum; Complete Time: 19:35 sb4 06/16 17:13 Order name: Head Brain Wo Cont CT; Complete Time: 20:33 sb4 06/16 17:13 Order name: Head Angio CT; Complete Time: 20:42 sb4 06/16 17:13 Order name: CT Neck Angio; Complete Time: 20:48 sb4 06/16 17:13 Order name: IV Start; Complete Time: 18:55 sb4 Administered Medications: 18:55 Drug: NS 0.9% IV 1000 ml IV at 1 bolus Per protocol; to be given as a bolus over 60 jb4 minutes Route: IV; Rate: 1 bolus; Site: left antecubital; 21:19 Follow up: Response: No adverse reaction; IV Status: Pt discharged; IV Intake: 900ml jb4 18:55 Drug: metoCLOPramide IVP 10 mg IVP once; over 1 to 2 minutes Route: IVP; Site: right jb4 antecubital; 21:19 Follow up: Response: No adverse reaction; Marked relief of symptoms; Pain is decreased jb4 18:55 Drug: diphenhydrAMINE IVP 25 mg IVP once Route: IVP; Site: left antecubital; jb4 21:19 Follow up: Response: No adverse reaction; Marked relief of symptoms; Pain is decreased jb4 18:55 Drug: Ketorolac IVP 15 mg IVP once Route: IVP; Site: left antecubital; jb4 21:19 Follow up: Response: No adverse reaction; Marked relief of symptoms; Pain is decreased jb4 Disposition: 06/17 06:58 Co-signature as Attending Physician, Everette Jo MD I reviewed the patient's care rn provided by the Advanced Practice Provider and agree with the diagnosis and treatment plan. Disposition Summary: 06/16/25 20:53 Discharge Ordered Notes: Location: Home sb4 Problem: an ongoing problem sb4 Symptoms: are resolved sb4 Condition: Stable sb4 Diagnosis - Episodic cluster headache sb4 Followup: sb4 - With: Private Physician - When: 1 week - Reason: Recheck today's complaints, Re-evaluation by your physician Discharge Instructions: - Discharge Summary Sheet sb4 - General Headache Without Cause, [id number] sb4 Forms: - Patient Portal Instructions sb4 - Leadership Thank You Letter sb4 Prescriptions: - Fioricet 50-300-40 mg Oral capsule - take 1 capsule ORAL route every 4 to 6 hours as needed for pain; 15 capsule; sb4 Refills: 0, Product Selection Permitted - ketorolac 10 mg Oral tablet - take 1 tablet ORAL route every 6 hours as needed for pain; maximum total sb4 duration of 5 days from all oral, intranasal, or parenteral formulations; 10 tablet; Refills: 0, Product Selection Permitted Signatures: Dispatcher [employer] EDEverette Mccoy MD MD rn Bryson, James, RN RN jb4 Rona Bettencourt, ANNETTA PANoeC sb4 Meka Sr, RN RN me1
--- NOTE | 2025-06-16 20:54 | ER ---
Nurse's Notes [facility] Name: Hilda Brewer Age: 40 yrs Sex: Female : 1985 Arrival Date: 06/16/2025 Time: 16:57 Bed 25 Private MD: Diagnosis: Episodic cluster headache Presentation: 06/16 17:07 Chief complaint: Patient states: intermittent migraine for about a month. Worse today. me1 Patient did give blood today. Pain level 8/10 "throbbing" with nausea, sensitivity to light. Coronavirus screen: Vaccine status: Patient reports being unvaccinated. Ebola Screen: No symptoms or risks identified at this time. Initial Sepsis Screen: Does the patient meet any 2 criteria? HR > 90 bpm. Does the patient have a suspected source of infection? No. Patient's initial sepsis screen is negative. Risk Assessment: Do you want to hurt yourself or someone else? Patient reports no desire to harm self or others. Onset of symptoms is unknown. 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 - Infectious Disease History:: Denies. - Social history:: Smoking status: Patient denies any tobacco usage or history of. Screenin:18 [facility] ED Fall Risk Assessment (Adult) History of falling in the last 3 months, jb4 including since admission No falls in past 3 months (0 pts) Confusion or Disorientation No (0 pts) Intoxicated or Sedated No (0 pts) Impaired Gait No (0 pts) Mobility Assist Device Used No (0 pt) Altered Elimination No (0 pt) Score/Fall Risk Level 0 - 2 = Low Risk Oriented to surroundings, Maintained a safe environment. Abuse screen: Denies threats or abuse. Nutritional screening: No deficits noted. Tuberculosis screening: No symptoms or risk factors identified. Assessment: 18:30 General: Appears in no apparent distress. comfortable, Behavior is calm, cooperative. jb4 Pain: Complains of pain in migraine headache Pain does not radiate. Pain currently is 2 out of 10 on a pain scale. at worst was 10 out of 10 on a pain scale. Neuro: Level of Consciousness is awake, alert, obeys commands, Oriented to person, place, time, situation. Cardiovascular: Patient's skin is warm and dry. Respiratory: Airway is patent Respiratory effort is even, unlabored, Respiratory pattern is regular, symmetrical. Derm: Skin is intact, Skin is pink, warm \\T\\ dry. 18:30 Musculoskeletal: Circulation, motion, and sensation intact. Range of motion: intact in jb4 all extremities. 19:30 Reassessment: Patient appears in no apparent distress at this time. Patient and/or jb4 family updated on plan of care and expected duration. Pain level reassessed. Patient is alert, oriented x 3, equal unlabored respirations, skin warm/dry/pink. 20:30 Reassessment: Patient appears in no apparent distress at this time. Patient and/or jb4 family updated on plan of care and expected duration. Pain level reassessed. Patient is alert, oriented x 3, equal unlabored respirations, skin warm/dry/pink. Vital Signs: 17:07 BP 116 / 75; Pulse 100; Resp 18; Temp 98.2; Pulse Ox 98% ; Weight 81.65 kg; Height 5 me1 ft. 1 in. ; Pain 8/10; 19:00 BP 107 / 78; Pulse 84; Resp 16; Pulse Ox 100% on R/A; jb4 20:30 BP 91 / 63; Pulse 79; Resp 16; Pulse Ox 98% on R/A; jb4 17:07 Body Mass Index 34.01 (81.65 kg, 154.94 cm) me1 17:07 Pain Scale: Adult me1 Aaron Coma Score: 21:15 Eye Response: spontaneous(4). Motor Response: obeys commands(6). Verbal Response: sb4 oriented(5). Total: 15. ED Course: 17:01 Patient arrived in ED. im 17:03 Rona Bettencourt PA-C is PHCP. sb4 17:03 Everette Jo MD is Attending Physician. sb4 17:09 Triage completed. me1 17:09 Arm band placed on Patient placed in waiting room. me1 17:15 Radiology exam delayed due to lab results not completed at this time. (HCG) jc4 (BUN/Creatinine) test not completed at this time. IV insertion attempt and/or patient not having appropriate IV at this time. 18:20 Rolando Hall, RN is Primary Nurse. jb4 19:50 Head Brain Wo Cont CT In Process Unspecified. EDMS 19:[address] In Process Unspecified. EDMS 19:50 CT Neck Angio In Process Unspecified. EDMS 21:18 Patient has correct armband on for positive identification. Bed in low position. Call jb4 light in reach. Side rails up X 1. Provided Education on: plan of care. 21:18 No provider procedures requiring assistance completed. IV discontinued, intact, jb4 bleeding controlled, No redness/swelling at site. Pressure dressing applied. Administered Medications: 18:55 Drug: NS 0.9% IV 1000 ml IV at 1 bolus Per protocol; to be given as a bolus over 60 jb4 minutes Route: IV; Rate: 1 bolus; Site: left antecubital; 21:19 Follow up: Response: No adverse reaction; IV Status: Pt discharged; IV Intake: 900ml jb4 18:55 Drug: metoCLOPramide IVP 10 mg IVP once; over 1 to 2 minutes Route: IVP; Site: right jb4 antecubital; 21:19 Follow up: Response: No adverse reaction; Marked relief of symptoms; Pain is decreased jb4 18:55 Drug: diphenhydrAMINE IVP 25 mg IVP once Route: IVP; Site: left antecubital; jb4 21:19 Follow up: Response: No adverse reaction; Marked relief of symptoms; Pain is decreased jb4 18:55 Drug: Ketorolac IVP 15 mg IVP once Route: IVP; Site: left antecubital; jb4 21:19 Follow up: Response: No adverse reaction; Marked relief of symptoms; Pain is decreased jb4 Medication: 21:18 VIS not applicable for this client. jb4 Intake: 21:19 IV: 900ml; Total: 900ml. jb4 Outcome: 20:53 Discharge ordered by . sb4 21:18 Discharged to home ambulatory, with family, jb4 21:18 Condition: stable 21:18 Discharge instructions given to patient, Instructed on discharge instructions, follow up and referral plans. no drinking with medication, no driving heavy equipment, medication usage, Demonstrated understanding of instructions, follow-up care, medications, Prescriptions given X 2, 21:20 Patient left the ED. jb4 Signatures: Dispatcher [employer] EDRolando Mazariegos RN RN jb4 Rona Bettencourt PA-C PA-C sb4 Abbey Mayer Michelle, RN RN me1 Randy Meredith jc4
[2025-06-17 05:45] VITALS: TEMP 98.2
[2025-06-17 05:48] VITALS: BP 91/63; O2SAT 98
== END 2025-06-16 21:20 | disposition home or self-care (01) ==
LOC: ER 16:57
DX: G44.019 Episodic cluster headache, not intractable (principal); F32.A Depression, unspecified; G43.909 Migraine, unspecified, not intractable, without status migrainosus
CPT/HCPCS: 85025; 80048; 36415; 83735; 84703; 70450; 70496; 70498; 99284; Q9967; J1885; J2765; J1200; J7030